=== PATIENT | female | born 1945 | race Caucasian/White ===

== ENCOUNTER 2022-09-13 14:08 | Inpatient (IN) | payer MEDICARE ==
[~2022-09-13] VITALS: Ht 167.6 cm; Wt 91.3 kg
[~2022-09-13 14:08] MED LIST: ACID REDUCER 1150 MG PO; Bupropion HCl100 M1 PO; CEPH500 PO; CHOL10002 PO; CLON.5 PO; Calcium Magnes1 EACH PO; Complete Multi1 EAC1 PO; D3-20002000 UNIT PO; DESI50 PO; FISH1000 PO; FOLI400 PO; GABA300 PO; Ibuprofen Ib200 MG PO; MIRT15 PO; OXYC10TA19 PO; OXYC15ER PO; OXYC1TAB11 PO; OXYCODONE HCL E20 MG PO; Oxycodone HCl20 M1 PO; POTASSIUM GLUC500 MG PO; Prozac40 MG PO; Stool Softener100 MG PO; TRIA80TC TOP
[2022-09-13 14:30] LABS: PCO2 Arterial 85.3 mmHg (35-45); PO2 Arterial 128 mmHg (80-100)
[2022-09-13 14:37] LABS: Source, Urine Foley catheter
[2022-09-13 14:40] LABS: Appearance, Urine Hazy (Clear); Bilirubin, Urine Neg (Neg); Blood, Urine Neg (Neg); Glucose Qualitative, Urine Neg (Neg); Ketones, Urine Neg (Neg); Leukocyte Esterase, Urine Neg (Neg); Nitrite, Urine Pos (Neg); Protein, Urine 2+ (Neg); Specific Gravity, Urine 1.015 (1.003-1.022); Urobilinogen, Urine NORM (Normal)
[2022-09-13 14:46] LABS: Color, Urine Pale Yellow (P-Yellow)
[2022-09-13 14:50] LABS: International Normalized Ratio 1.01; Prothrombin Time Results 10.6 Sec (9.7-11.5)
[2022-09-13 14:51] LABS: Hyaline Casts 0-2 /lpf (0-2)
[2022-09-13 14:52] LABS: Bacteria Many /hpf; Calcium Oxalate Crystals Rare /hpf; Red Blood Cells, Urine 0-2 /hpf (0-2); Squamous Epithelial Cells Not Seen /hpf (Few); Transitional Epithelial Cells Rare /hpf (0-Rare)
[2022-09-13 14:54] LABS: Alanine Aminotransfer (ALT/SGP 23 U/L (12-78); Albumin, Blood 3.1 g/dL (3.4-5.0); Albumin/Globulin Ratio 0.7 (0.8-1.8); Alk Phos 67 U/L (50-136); Anion Gap Unable to Calculate mmol/L (6-16); Aspartate Aminotrans (AST/SGOT 47 U/L (12-37); Bilirubin, Total 0.9 mg/dL (0.1-1.0); Blood Urea Nitrogen 9 mg/dL (8-24); Bun/Creatinine Ratio 19.9 (12.0-20.0); CO2, Blood 43 mmol/L (21-32); Calcium, Blood 8.6 mg/dL (8.5-10.1); Chloride, Blood 102 mmol/L (98-108); Creatinine, Blood 0.45 mg/dL (0.40-1.00); Globulin, Blood 4.5 g/dL (2.2-4.0); Glomerular Filtration Rate 101 (60-); Glucose, Blood 156 mg/dL (70-99); Potassium, Blood 4.5 mmol/L (3.5-5.5); Sodium, Blood 143 mmol/L (136-145); Total Protein, Blood 7.6 g/dL (6.4-8.2)
[2022-09-13 15:00] LABS: U Amphetamine Screen Not Detected; U Barbituate Screen Not Detected; U Benzodiazapine Screen Not Detected; U Buprenorphine Screen Not Detected; U Cannabinoids Screen Not Detected; U Cocaine Screen Not Detected; U Methadone Screen Not Detected; U Methamphetamine Screen Not Detected; U Opiates Screen DETECTED; U Oxycodone Screen Not Detected; U Phencyclidine Screen Not Detected; U Propoxyphene Screen Not Detected
[2022-09-13 15:11] LABS: BASOPHILS ABSOLUTE AUTO 0.03 K/mm3 (0.00-0.23); BASOPHILS PERCENT AUTO 0 % (0-2); EOSINOPHILS ABSOLUTE AUTO 0.12 K/mm3 (0.00-0.68); EOSINOPHILS PERCENT AUTO 1 % (0-6); Hematocrit 46.2 % (33.0-51.0); Hemoglobin 13.3 g/dL (11.5-16.0); IMMATURE GRAN ABSOLUTE AUTO 0.02 K/mm3 (0.00-0.10); IMMATURE GRAN PERCENT AUTO 0 % (0-1); LYMPHOCYTES ABSOLUTE AUTO 1.39 K/mm3 (0.84-5.20); LYMPHOCYTES PERCENT AUTO 13 % (21-46); MONOCYTES ABSOLUTE AUTO 0.48 K/mm3 (0.16-1.47); MONOCYTES PERCENT AUTO 5 % (4-13); Mean Corpuscular HGB 27.3 pg (26.0-34.0); Mean Corpuscular HGB Conc 28.8 g/dL (31.5-36.5); Mean Corpuscular Volume 95 fL (80-100); Mean Platelet Volume 10.1 fL (9.1-12.4); NEUTROPHILS ABSOLUTE AUTO 8.65 K/mm3 (1.96-9.15); NEUTROPHILS PERCENT AUTO 81 % (41-73); Platelet Count 135 K/mm3 (150-400); RDW Coefficient Variation 13.2 % (11.7-14.2); RDW Standard Deviation 46.5 fL (35.1-46.3); Red Blood Cell Count 4.88 M/mm3 (3.80-5.20); White Blood Cell Count 10.69 K/mm3 (4.00-11.30)
[2022-09-13 15:24] LABS: Influenza A, PCR NEGATIVE (NEGATIVE); Influenza B, PCR NEGATIVE (NEGATIVE); Resp Syncytial Virus, PCR NEGATIVE (NEGATIVE); SARS-Cov-2 (COVID-19) PCR, MMC NEGATIVE (NEGATIVE)
--- NOTE | 2022-09-13 19:15 | NUR ---
ASSUMED CARE PATIENT ON BIPAP. OPENS EYES SLIGHTLY TO PAIN. DAUGHTER AT BEDSIDE. HYPOTENSIVE, FLUID BOLUS INFUSING. LEVOPHED AND NARCAN DRIPS INFUSING. YAO CATH IN PLACE TO GRAVITY. CONFIRMED DNR STATUS WITH DAUGHTER AT BEDSIDE.
--- NOTE | 2022-09-13 19:37 | NUR ---
PT ADMIT.... PT ARRIVED ON THE UNIT AT 1735. PT WAS ON BIPAP AT 18/6 AND 65% WITH O2 SATS >90% L/S VERY DIM T/O. PT WAS VERY OBTUNDED ONLY RESPONDING TO PAINFUL STIMULI BY OPENING HER EYES AND MOVING HER HEAD BUT QUICKLY CLOSING THEM WITHOUT CONTINUED STIMULIATION. SHE WAS GIVEN ANOTHER DOSE OF IV NARCAN 0.4MG PER ORDERS THIS IMPROVED HER MENTATION A LITTLE MORE SHE OPENED HER EYES WITHOUT STIMULIATION AND MOVED HER ARMS BUT THIS QUICKLY WORE OFF. DURING THIS TIME HER FAMILY WAS AT THE BEDSIDE, ADMIT INFO WAS OBTAINED FROM NANY LOPEZON/PERSONAL INSURANCE ADVISOR. PT WAS IN SR IN TH 80'S-90'S BP WAS SOFT BUT MAPS WERE >65. AT 1815 THE PT'S BP STARTED TO TREND DOWN TO 60'S/20'S WITH MAPS IN THE 30'S. THE PROVIDER WAS CALLED AND ORDERS OBTAINED FOR A NARCAN DRIP, LR BOLUS AND LEVOPHED GTT. THE PT WAS GIVEN 0.4MG IV PUSH OF NARCAN AND THE BIPAP WAS TAKEN OFF TO SEE IF THE PT'S BP WOULD IMPROVE, HER MAPS IMPROVED SLIGHTLY BUT SHE STARTED TO DESAT DOWN TO THE 70'S SO SHE WAS PLACED BACK ON THE BIPAP. LEVOPHED GTT WAS STARTED PERIPHERALLY. DURING ADMIT THE PT WAS NOTED TO HAVE A RED AREA TO HER COCCYX, THIS AREA WAS BLANCHABLE BUT PICTURES WERE TAKEN AND A MEPILEX WAS PLACED. NANY THE KALYAN SON WAS ASKED TO BRING IN HER HOME MED LIST AND HIS COPY OF POA PAPERS. REPORT WAS GIVEN TO ONCOMING NELSON DAILY
[2022-09-13 19:38] LABS: PO2 Arterial 133 mmHg (80-100)
[2022-09-13 19:40] LABS: PCO2 Arterial 83.4 mmHg (35-45); pH Blood Arterial 7.25 (7.35-7.45)
--- NOTE | 2022-09-13 21:48 | NUR ---
DR. EMANUEL CALLED FOR PATIENT UPDATE. NOTIFIED OF CURRENT NARCAN/LEVOPHED/NS DOSE. PER DR. EMANUEL INCREASE NS FROM 100ML/HR TO 150ML/HR.
--- NOTE | 2022-09-13 23:21 | NUR ---
ASSUMED CARE PATIENT ON BIPAP. OPEN EYES SLIGHTLY TO PAIN. DAUGHTER AT BEDSIDE. PATIENT HYPOTENSIVE. RECEIVING FLUID BOLUS. LEVOPHED AND NARCAN DRIPS INFUSING. YAO IN PLACE. CONFIRMED DNR STATUS WITH DAUGHTER AT BEDSIDE.
[2022-09-14 03:53] LABS: Bicarbonate Venous 30.2 mmol/L (24.0-30.0); PCO2 Venous 54.5 mmHg (38-42); pH Blood Venous 7.39 (7.34-7.37)
[2022-09-14 05:12] LABS: BASOPHILS ABSOLUTE AUTO 0.01 K/mm3 (0.00-0.23); BASOPHILS PERCENT AUTO 0 % (0-2); EOSINOPHILS PERCENT AUTO 0 % (0-6); Hematocrit 43.4 % (33.0-51.0); IMMATURE GRAN ABSOLUTE AUTO 0.05 K/mm3 (0.00-0.10); IMMATURE GRAN PERCENT AUTO 0 % (0-1); LYMPHOCYTES ABSOLUTE AUTO 1.08 K/mm3 (0.84-5.20); LYMPHOCYTES PERCENT AUTO 9 % (21-46); MONOCYTES ABSOLUTE AUTO 0.08 K/mm3 (0.16-1.47); MONOCYTES PERCENT AUTO 1 % (4-13); Mean Corpuscular HGB 27.7 pg (26.0-34.0); Mean Corpuscular Volume 93 fL (80-100); NEUTROPHILS ABSOLUTE AUTO 10.65 K/mm3 (1.96-9.15); NEUTROPHILS PERCENT AUTO 90 % (41-73); RDW Coefficient Variation 13.5 % (11.7-14.2); RDW Standard Deviation 45.2 fL (35.1-46.3); Red Blood Cell Count 4.69 M/mm3 (3.80-5.20); White Blood Cell Count 11.87 K/mm3 (4.00-11.30)
[2022-09-14 05:18] LABS: Mean Platelet Volume 10.9 fL (9.1-12.4); Platelet Count 125 K/mm3 (150-400)
[2022-09-14 05:41] LABS: Bun/Creatinine Ratio 23.8 (12.0-20.0); Calcium, Blood 7.9 mg/dL (8.5-10.1); Creatinine, Blood 0.42 mg/dL (0.40-1.00); Potassium, Blood 3.4 mmol/L (3.5-5.5)
--- NOTE | 2022-09-14 06:18 | NUR ---
NOTIFIED DR. WHITE OF POTASSIUM 3.4 ORDERS RECEIVED.
--- NOTE | 2022-09-14 06:27 | NUR ---
SHIFT SUMMARY PATIENT IS ALERT OPENING EYES SPONTANEOUSLY, ASKING QUESTIONS. LEVOPHED & NARCAN OFF. VS STABLE, HOWEVER PATIENTS O2 SATS WILL RANDOMLY DROP INTO THE 70'S SLOWLY RECOVERING BACK INTO THE 90'S. URINE OUTPUT ADEQUATE.
--- NOTE | 2022-09-14 08:11 | NUR ---
AM NOTE... ASSUMED CARE OF PT AT 0700, PT IS A&Ox4. SHE WAS ON BIPAP AT 12/5 AND 50% WITH O2 SATS >90%, THIS WAS CHANGED TO AIRVO AT 40L AND 50% WITH O2 SATS >90% L/S COARSE T/O DIM IN THE BASES, RR 14-19. SHE IS IN SR IN THE 80'S-90'S MAPS ARE >65. NO EDEMA IS NOTED ON THIS ASSESSMENT. TEMP YAO IN PLACE, PATENT AND DRAINING TO GRAVITY. PT IS AWAKE AND ALERT, ABLE TO TAKE PO MEDS AND THIN LIQUIDS. PROVIDERS AT THE BEDSIDE TO ASSESS THE PT, NEW ORDERS FOR A DIET AND CBG CHECKS WERE OBTAINED. WILL CONTINUE TO MONITOR.
[2022-09-14] MEDS ORDERED: GABA300 PO (11:30)
[2022-09-14] MEDS ORDERED: MEMA5TAB PO (11:30)
[2022-09-14] MEDS ORDERED: METO25ER PO (11:30)
[2022-09-14] MEDS ORDERED: Crestor20 MG PO (11:31)
[2022-09-14] MEDS ORDERED: ASPI81CH PO (11:32)
[2022-09-14] MEDS ORDERED: CO Q10100 MG PO (11:32)
[2022-09-14] MEDS ORDERED: ASCORBIC ACID500 MG PO (11:33)
[2022-09-14] MEDS ORDERED: CALCIUM-MAGNES1 EAC9 PO (11:34)
[2022-09-14] MEDS ORDERED: FISH OIL 1,2001 EAC7 PO (11:35)
--- NOTE | 2022-09-14 13:42 | NUR ---
PT UPDATE.... PT WAS A 1P ASSIST TO THE RECLINER CHAIR AND ATE LUNCH. SHE GOT A BEDBATH AND HER YAO WAS D/C'd WNL. PT'S FIO2 WAS DECREASED FROM 50% TO 40% SHE IS CURRENTLY 40L AND 40% WITH O2 SATS >90%. WILL CONTINUE TO MONITOR.
[2022-09-14] MEDS ORDERED: BREZTRI AEROS10.7 GM INH (14:21)
--- NOTE | 2022-09-14 15:09 | NUR ---
PT TRANSFER... PT TRANSFER TO PCU, REPORT GIVEN TO ALANIS DAMON. ALL OF THE PT'S BELONGINGS WERE PACKED AND SENT WITH THE PT. PT'S VS STABLE AT THE TIME OF TRANSFER. PT WAS TITRATED OFF OF THE AIRVO AT 40L AND 40% TO 4L NC WITH O2 SATS >90%. PT'S FAMILY NOTIFIED OF THE MOVE.
--- NOTE | 2022-09-14 17:03 | NUR ---
PT TRANSFERRED FROM ICU 7 TO PCU 2 REPORT RECEIVED FROM VANDANA DAMON. PT WAS TRANSITIONED FROM AIRVO TO 4L OF O2 VIA NASAL CANNULA PT WAS ABLE TO TOLERATE SATS ABOVE 90%. PT IS ALERT AND ORIENTED X3 FORGETFUL WITH SOME CONFUSION, PER SON PT HAS PRE DEMENTIA. BED ALARM WAS PLACED PT STOOD UP IN THE ROOM WITHOUT CALLING FIXING HER BED, OTHERWISE PT IS REDIRECTABLE AND COOPERATIVE. PT IN THE ROOM WITH CALL LIGHTS IN REACH, SON CALLED WAS GIVEN UPDATE. WILL MONITOR
--- NOTE | 2022-09-15 05:37 | NUR ---
SHIFT SUMMARY PT A&O TO SELF AND PERSON, UNABLE TO STATE WHERE SHE IS. VSS, BP STABLE, SR-ST 80-100's, DENIES CP/PRESSURE. SpO2> 92% ON 40L/40% FiO2 VIA AIRVO. PT DESATURATES TO 80's WITH BED ACTIVITY. REPORTS MILD SOB ONLY WHEN DESATURATING. PT HAD BOTH INCONTINENT AND CONTINENT VOIDS, THOUGHT WAS UNABLE TO UNDERSTAND HOW TO USE BEDPAN, DID NOT GET PT UP D/T DESATURATING WITH JUST BED ACTIVITY. NO BM THIS SHIFT, BOWEL CARE PROVIDED. NO OTHER EVENTS, WILL REPORT TO ONCOMING RN.
[2022-09-15 07:01] LABS: Hematocrit 38.6 % (33.0-51.0); Hemoglobin 11.3 g/dL (11.5-16.0); Mean Corpuscular HGB 27.2 pg (26.0-34.0); Mean Corpuscular HGB Conc 29.3 g/dL (31.5-36.5); Mean Corpuscular Volume 93 fL (80-100); Platelet Count 125 K/mm3 (150-400); RDW Coefficient Variation 13.7 % (11.7-14.2); RDW Standard Deviation 46.5 fL (35.1-46.3); Red Blood Cell Count 4.15 M/mm3 (3.80-5.20); White Blood Cell Count 10.33 K/mm3 (4.00-11.30)
[2022-09-15 07:12] LABS: Bun/Creatinine Ratio 43.4 (12.0-20.0); Calcium, Blood 8.6 mg/dL (8.5-10.1); Creatinine, Blood 0.46 mg/dL (0.40-1.00)
--- NOTE | 2022-09-15 10:44 | NUR ---
Spoke with Pt's Primary RN Chaya prior to visit and discussed case. Pt more alert today but still requiring AIRVO. Pt resting in bed and is A&OX3/4. Pt struggles with verbalizing reason for hospital stay. Pt denies pain, anxiety, and nausea. She reports feeling better and dyspnea has improved. Pt's son Getachew is at bedside. Pt reports living with family with Getachew confirming Pt lives with him. Getachew reports being Pt's primary caregiver. Reviewed plan of care and offered therapeutic listening. Getachew reports Pt has not taken oral pain medication at home in quite some time and just relies on pain pump. He reports Pt has pain pump for approximately 4 years. Getachew also reports Pt has dementia. Continued therapeutic listening and answered questions. Getachew and Pt agreeable for continued visits from this PC RN. Getachew does request to be present when this RN visits due to Pt's dementia. Palliative Care will F/U for advanced care planning.
--- NOTE | 2022-09-15 18:26 | NUR ---
END OF SHIFT PT A&O TO PERSON, PLACE & EVENT. PT DIFFICULTY W/ DATE, BUT EVENTUALLY ORIENTED TO DATE/TIME WELL. PT VSS. SPO2 > 90% ON AIRVO: 40L, FIO2 40%. W/ REQUEST TO TITRATE O2 DOWN ABLE. PT 90-92% AT REST. SPO2 87-90% ON AIRVO: 40L FIO2 35% AT REST. PT REQUIRING MORE O2 FOR ACTIVITY. MONITOR SHOWING SR-ST, HR 80s-110. PT INCONTINENT, WEARING ATTENDS. PT ABLE TO MAKE NEEDS KNOWN.
[2022-09-16 04:21] LABS: BASOPHILS PERCENT AUTO 0 % (0-2); EOSINOPHILS PERCENT AUTO 0 % (0-6); Hematocrit 38.3 % (33.0-51.0); Hemoglobin 11.5 g/dL (11.5-16.0); IMMATURE GRAN ABSOLUTE AUTO 0.06 K/mm3 (0.00-0.10); IMMATURE GRAN PERCENT AUTO 1 % (0-1); LYMPHOCYTES ABSOLUTE AUTO 0.51 K/mm3 (0.84-5.20); LYMPHOCYTES PERCENT AUTO 5 % (21-46); MONOCYTES ABSOLUTE AUTO 0.37 K/mm3 (0.16-1.47); MONOCYTES PERCENT AUTO 4 % (4-13); Mean Corpuscular HGB 27.6 pg (26.0-34.0); Mean Corpuscular Volume 92 fL (80-100); Mean Platelet Volume 9.9 fL (9.1-12.4); NEUTROPHILS ABSOLUTE AUTO 9.26 K/mm3 (1.96-9.15); NEUTROPHILS PERCENT AUTO 91 % (41-73); Platelet Count 143 K/mm3 (150-400); RDW Coefficient Variation 13.8 % (11.7-14.2); RDW Standard Deviation 46.9 fL (35.1-46.3); Red Blood Cell Count 4.17 M/mm3 (3.80-5.20)
[2022-09-16 04:27] LABS: Bun/Creatinine Ratio 56.1 (12.0-20.0); Calcium, Blood 9.2 mg/dL (8.5-10.1); Creatinine, Blood 0.48 mg/dL (0.40-1.00); Potassium, Blood 3.5 mmol/L (3.5-5.5)
--- NOTE | 2022-09-16 04:35 | NUR ---
SHIFT SUMMARY PT A&O TO SELF AND PERSON, UNABLE TO STATE WHERE SHE IS. VSS, BP STABLE, SR-ST 80-100's, DENIES CP/PRESSURE. SpO2> 92% ON 40L/35% FiO2 VIA AIRVO OR 12/5 35% FiO2 VIA BIPAP. PT DESATURATES TO 80's WITH BED ACTIVITY. REPORTS MILD SOB ONLY WHEN DESATURATING. PT HAD BOTH INCONTINENT AND CONTINENT VOIDS, PUREWICK IN PLACE. DID NOT GET PT UP D/T DESATURATING WITH JUST BED ACTIVITY. NO BM THIS SHIFT, BOWEL CARE PROVIDED. NO OTHER EVENTS, WILL REPORT TO ONCOMING RN.
--- NOTE | 2022-09-16 10:21 | NUR ---
Case Conference Note Met with Pt's son Getachew out in [place]. Listened as he reports Pt is doing better. Continued therapeutic listening. Engaged in brief and gentle conversation regarding advanced care planning. Discussed the importance of planning for the future as disease process takes its coarse. Continued therapeutic listening and answered questions. Spoke with Pt's Primary RN Chaya and discussed case. Pt improving, up in a chair and on 4 L O2 via NC. No concerns reported at this time. Palliative Care will remain available
[2022-09-16 11:00] LABS: Base Excess Venous 15.5 mmol/L; Bicarbonate Venous 36.3 mmol/L (24.0-30.0); pH Blood Venous 7.42 (7.34-7.37)
--- NOTE | 2022-09-16 18:41 | NUR ---
END OF SHIFT NOTE. PT HAS HAD A GREAT DAY. PT WAS ABLE TO WEAN DOWN TO HER BASELINE 4L VIA NASAL CANNULA. SHE HAS TOLERATED THAT WELL, EVEN WHILE WORKING WITH PT. PT HAS DENIED AN PAIN TODAY. VITALS STABLE ALL SHIFT. PT REPORTS IT HAS BEEN A COUPLE DAYS SINCE LAST BM, MAY BENEFIT FROM ADDITIONAL BOWEL CARE.
[2022-09-17 04:14] LABS: BASOPHILS ABSOLUTE AUTO 0.02 K/mm3 (0.00-0.23); BASOPHILS PERCENT AUTO 0 % (0-2); EOSINOPHILS PERCENT AUTO 0 % (0-6); Hematocrit 40.7 % (33.0-51.0); Hemoglobin 12.4 g/dL (11.5-16.0); IMMATURE GRAN ABSOLUTE AUTO 0.08 K/mm3 (0.00-0.10); IMMATURE GRAN PERCENT AUTO 1 % (0-1); LYMPHOCYTES ABSOLUTE AUTO 0.79 K/mm3 (0.84-5.20); LYMPHOCYTES PERCENT AUTO 10 % (21-46); MONOCYTES ABSOLUTE AUTO 0.18 K/mm3 (0.16-1.47); MONOCYTES PERCENT AUTO 2 % (4-13); Mean Corpuscular HGB 27.7 pg (26.0-34.0); Mean Corpuscular HGB Conc 30.5 g/dL (31.5-36.5); Mean Corpuscular Volume 91 fL (80-100); Mean Platelet Volume 10.8 fL (9.1-12.4); NEUTROPHILS ABSOLUTE AUTO 7.26 K/mm3 (1.96-9.15); NEUTROPHILS PERCENT AUTO 87 % (41-73); Platelet Count 146 K/mm3 (150-400); RDW Coefficient Variation 13.7 % (11.7-14.2); RDW Standard Deviation 45.8 fL (35.1-46.3); Red Blood Cell Count 4.48 M/mm3 (3.80-5.20); White Blood Cell Count 8.33 K/mm3 (4.00-11.30)
--- NOTE | 2022-09-17 04:29 | NUR ---
SHIFT SUMMARY: PT ALERT AND ORIENTED, ABLE TO FOLLOW COMMANDS AND MAKE NEEDS KNOWN. ELIM IRA. BP AND HR STABLE, AFEBRILE, SATS >94% ON 4L NC. RESPIRATIONS EVEN AND UNLABORED. PULSES STRONG THROUGHOUT. PT INC OF URINE AT TIMES, NO BM THROUGHOUT THE NIGHT. ATTENDS CHANGED. REPOS Q2 TO MAINTAIN SKIN INTEGRITY. PT WITH NO COMPLAINTS OF PAIN THROUGHOUT THE NIGHT. POWERGLIDE REMAINS IN MICHELLE, DRAWS AND FLUSHES. POSSIBLE D/C TODAY. BED IN LOW, CALL LIGHT IN REACH, WILL REPORT TO ONCOMING RN.
[2022-09-17 04:43] LABS: Anion Gap Unable to Calculate mmol/L (6-16); Blood Urea Nitrogen 22 mg/dL (8-24); Bun/Creatinine Ratio 53.9 (12.0-20.0); CO2, Blood 41 mmol/L (21-32); Calcium, Blood 9.1 mg/dL (8.5-10.1); Chloride, Blood 100 mmol/L (98-108); Creatinine, Blood 0.41 mg/dL (0.40-1.00); Glomerular Filtration Rate 103 (60-); Glucose, Blood 177 mg/dL (70-99); Potassium, Blood 4.3 mmol/L (3.5-5.5); Sodium, Blood 138 mmol/L (136-145)
[2022-09-17] MEDS ORDERED: Celexa20 MG PO (11:09)
[2022-09-17] MEDS ORDERED: IPRAT-ALBUT 0.5-3 ML INH (11:42)
[2022-09-17] MEDS ORDERED: ALBU90OI INH (11:42)
[2022-09-17] MEDS ORDERED: MULVITA PO (12:00)
--- NOTE | 2022-09-17 12:24 | NUR ---
DISCHARGE NOTE PT TO DISCHARGE HOME WITH SON. EDUCATION WAS PROVIDED TO PT AND SON. SIGNIFICANT EMPHASIS WAS PLACED ON LIMITING PAIN OR SEDATIVE MEDICATIONS. STAFF ALSO ENCOURAGED APPTS WITH PCP AND PAIN MD SOON. SON REPORTED THAT ALL ACCESS TO MEDICATIONS ARE LOCKED AWAY FROM PT AND HE IS TO MANAGE HER MEDICATIONS. PT IS BACK TO BASELINE 4L NC. STAFF ENCOURAGED THE USE OF WALKER AT HOME WELL TAKING REST BREAKS UNTIL HER ENDURANCE IS BACK. IVS REMOVED, ALL BELONGINGS TAKEN WITH PT. ALL QUESTIONS ANSWERED.
== END 2022-09-17 12:43 | disposition home or self-care (01) | DRG 917 ==
LOC: ER 14:08 → ICUW 16:04 → ICUE 17:25 → PCU 09-14 15:00
PROVIDERS: Emergency Medicine; Family Medicine; Nurse Practitioner Acute Care; ADMIT Hospitalist
PROC: 5A09357 Assistance with Respiratory Ventilation, Less than 24 Consecutive Hours, Continuous Positive Airway Pressure (ICD-10-PCS; principal; 2022-09-13)
PROC: 3E033XZ Introduction of Vasopressor into Peripheral Vein, Percutaneous Approach (ICD-10-PCS; 2022-09-13)
PROC: 5A0935A Assistance with Respiratory Ventilation, Less than 24 Consecutive Hours, High Flow/Velocity Cannula (ICD-10-PCS; 2022-09-13)
DX: T40.2X1A Poisoning by other opioids, accidental (unintentional), initial encounter (principal); G92.8 Other toxic encephalopathy; J18.9 Pneumonia, unspecified organism; J96.22 Acute and chronic respiratory failure with hypercapnia; J44.1 Chronic obstructive pulmonary disease with (acute) exacerbation; J44.0 Chronic obstructive pulmonary disease with (acute) lower respiratory infection; E66.2 Morbid (severe) obesity with alveolar hypoventilation; E87.20 Acidosis, unspecified; N39.0 Urinary tract infection, site not specified; F03.911 Unspecified dementia, unspecified severity, with agitation; G89.4 Chronic pain syndrome; M79.7 Fibromyalgia; E11.9 Type 2 diabetes mellitus without complications; Z87.891 Personal history of nicotine dependence; Z66 Do not resuscitate; Z99.81 Dependence on supplemental oxygen; B96.20 Unspecified Escherichia coli [E. coli] as the cause of diseases classified elsewhere; Z79.891 Long term (current) use of opiate analgesic
CPT/HCPCS: 0241U; 36415; 36600; 51702; 70450; 71045; 80048; 80053; 81001; 82803; 82947; 83605; 83735; 84145; 84484; 85025; 85027; 85610; 85730; 87040; 87077; 87086; 87186; 93005; 93010; 93306; 94640; 94660; 94664; 94762; 96365-59; 96366-59; 96368; 96375-59; 96376-59; 97110; 97116; 97162; 99285-25; A9270; C1751; G0480; J0456; J0696; J1650; J1940; J2060; J2310; J2405; J2930; J3370; J3480; J7030; J7050; J7060; J7120

== ENCOUNTER 2023-02-28 18:25 | Inpatient (IN) | payer MEDICARE ==
[2023-02-28] VITALS (19 sets, daily range): BP systolic 108–142; BP diastolic 37–90
[~2023-02-28] VITALS: Ht 160 cm; Wt 93.4 kg
[~2023-02-28 18:25] MED LIST changes: +ALBU90OI INH; +ASCORBIC ACID500 MG PO; +ASPI81CH PO; +BREZTRI AEROS10.7 GM INH; +CALCIUM-MAGNES1 EAC9 PO; +CO Q10100 MG PO; +Celexa20 MG PO; +Crestor20 MG PO; +FISH OIL 1,2001 EAC7 PO; +IPRAT-ALBUT 0.5-3 ML INH; +MEMA5TAB PO; +METO25ER PO; +MULVITA PO; +PRED20 PO
--- NOTE | 2023-02-28 19:20 | NUR ---
ASSUMED CARE CARE WAS ASSUMED OF PT AT 1920. PT TRANSPORTED FROM [facility]. PT A/O X2-3, PT SEMI-DROWSY AND HARD TO COMPLETELY UNDERSTAND D/T BIPAP AND DENTURES NOT IN. PT ARRIVED ON BIPAP, 05/04/40%. PT TOLERATING BIPAP WELL, O2 SATS >90%. CARDIAC MONITORING REFLECTED SINUS TACH, HR SBP 100s. SBP 120s.
[2023-02-28 22:11] LABS: PO2 Arterial 92.4 mmHg (80-100)
[2023-02-28 22:12] LABS: PCO2 Arterial 95.1 mmHg (35-45); pH Blood Arterial 7.24 (7.35-7.45)
[2023-03-01] VITALS (46 sets, daily range): BP systolic 95–144; BP diastolic 59–81
[2023-03-01 02:19] LABS: PO2 Arterial 115 mmHg (80-100)
[2023-03-01 02:20] LABS: PCO2 Arterial 93.5 mmHg (35-45); pH Blood Arterial 7.25 (7.35-7.45)
[2023-03-01 06:42] LABS: Bun/Creatinine Ratio 39.8 (12.0-20.0); Calcium, Blood 8.4 mg/dL (8.5-10.1); Creatinine, Blood 0.53 mg/dL (0.40-1.00); Potassium, Blood 4.6 mmol/L (3.5-5.5)
[2023-03-01 06:55] LABS: Bicarbonate Venous 35.8 mmol/L (24.0-30.0); pH Blood Venous 7.36 (7.34-7.37)
[2023-03-01 06:59] LABS: BASOPHILS ABSOLUTE AUTO 0.01 K/mm3 (0.00-0.23); BASOPHILS PERCENT AUTO 0 % (0-2); EOSINOPHILS PERCENT AUTO 0 % (0-6); Hematocrit 42.2 % (33.0-51.0); Hemoglobin 12.5 g/dL (11.5-16.0); IMMATURE GRAN ABSOLUTE AUTO 0.03 K/mm3 (0.00-0.10); IMMATURE GRAN PERCENT AUTO 0 % (0-1); LYMPHOCYTES ABSOLUTE AUTO 1.08 K/mm3 (0.84-5.20); LYMPHOCYTES PERCENT AUTO 11 % (21-46); MONOCYTES ABSOLUTE AUTO 0.21 K/mm3 (0.16-1.47); MONOCYTES PERCENT AUTO 2 % (4-13); Mean Corpuscular HGB 27.4 pg (26.0-34.0); Mean Corpuscular HGB Conc 29.6 g/dL (31.5-36.5); Mean Corpuscular Volume 92 fL (80-100); Mean Platelet Volume 10.1 fL (9.1-12.4); NEUTROPHILS ABSOLUTE AUTO 8.82 K/mm3 (1.96-9.15); NEUTROPHILS PERCENT AUTO 87 % (41-73); Platelet Count 125 K/mm3 (150-400); RDW Coefficient Variation 13.2 % (11.7-14.2); RDW Standard Deviation 44.6 fL (35.1-46.3); Red Blood Cell Count 4.57 M/mm3 (3.80-5.20); White Blood Cell Count 10.15 K/mm3 (4.00-11.30)
--- NOTE | 2023-03-01 07:00 | NUR ---
ASSUME CARE: I have assumed care of this patient.
--- NOTE | 2023-03-01 07:38 | NUR ---
SHIFT SUMMARY SHARDA'S MENTATION HAS GOTTEN BETTER THROUGHOUT THE SHIFT. PT IS STILL A/0 X2-3 BUT IS BEGINNING TO ASK APPROPRIATE QUESTIONS AND INQUIRING ABOUT HER CARE. PT HAS REMAINED ON BIPAP ALL NIGHT, TOLERATED WELL. SETTINGS AT SHIFT CHANGE 20/12/45%. O2 SATS >90%. CARDIAC MONITORING REFLECTED SINUS TACH THIS SHIFT, SBP 120s-130s. ABGs DRAWN THROUGHOUT THE SHIFT, pH AND CO2 IMPROVING. BILATERAL PIVs SL.
--- NOTE | 2023-03-01 11:33 | NUR ---
PROVIDER: Dr Grayson at bedside. Request RN to leave pt on NC until VBG this afternoon.
[2023-03-01 14:13] LABS: PCO2 Venous 67.3 mmHg (38-42); pH Blood Venous 7.39 (7.34-7.37)
[2023-03-01 14:14] LABS: Base Excess Venous 15.4 mmol/L; Bicarbonate Venous 36.5 mmol/L (24.0-30.0)
--- NOTE | 2023-03-01 18:42 | NUR ---
SHIFT SUMMARY: Pt tolerated 6L NC for much of the day. She is A/O x 4 at this time. Bedside swallow successfully completed and ADA diet initiated. Purewick in place. Family updated on pt status at bedside.
--- NOTE | 2023-03-01 18:45 | NUR ---
SHIFT SUMMARY: Precedex titrated off for a few hours, however pt began complaining of feeling agitated and wanting to "yell at everyone". It was restarted at 0.2 mcg/kg/hr with good effect. She was given PO librium today for CIWAs. Pt transferres from bed to commode with assistance. She was up in chair today as well. Family updated at bedside.
--- NOTE | 2023-03-01 19:08 | NUR ---
IGNITION RISK: Sources of ignition rounded on hourly. Pt and family educated on risks.
[2023-03-02] VITALS (11 sets, daily range): BP systolic 129–159; BP diastolic 59–77
[2023-03-02 04:50] LABS: Anion Gap Unable to Calculate mmol/L (6-16); Blood Urea Nitrogen 23 mg/dL (8-24); Bun/Creatinine Ratio 46.7 (12.0-20.0); CO2, Blood 41 mmol/L (21-32); Calcium, Blood 8.9 mg/dL (8.5-10.1); Chloride, Blood 101 mmol/L (98-108); Creatinine, Blood 0.49 mg/dL (0.40-1.00); Glomerular Filtration Rate 98 (60-); Glucose, Blood 224 mg/dL (70-99); Magnesium, Blood 2.1 mg/dL (1.6-2.4); Potassium, Blood 4.5 mmol/L (3.5-5.5); Sodium, Blood 140 mmol/L (136-145)
--- NOTE | 2023-03-02 05:30 | NUR ---
SHIFT SUMMARY: Pt slept for most of the night with BIPAP on. On 6L NC this morning. Eating yogurt. Vitals stable. Denies pain/ discomfort. Turned every 2 hours, purewick in place, changed this morning at 0400.
[2023-03-02 06:36] LABS: BASOPHILS ABSOLUTE AUTO 0.03 K/mm3 (0.00-0.23); BASOPHILS PERCENT AUTO 0 % (0-2); EOSINOPHILS PERCENT AUTO 0 % (0-6); Hematocrit 40.8 % (33.0-51.0); Hemoglobin 12.4 g/dL (11.5-16.0); IMMATURE GRAN PERCENT AUTO 1 % (0-1); LYMPHOCYTES ABSOLUTE AUTO 1.03 K/mm3 (0.84-5.20); LYMPHOCYTES PERCENT AUTO 11 % (21-46); MONOCYTES ABSOLUTE AUTO 0.23 K/mm3 (0.16-1.47); MONOCYTES PERCENT AUTO 3 % (4-13); Mean Corpuscular HGB 26.7 pg (26.0-34.0); Mean Corpuscular HGB Conc 30.4 g/dL (31.5-36.5); Mean Corpuscular Volume 88 fL (80-100); Mean Platelet Volume 11.1 fL (9.1-12.4); NEUTROPHILS ABSOLUTE AUTO 7.77 K/mm3 (1.96-9.15); NEUTROPHILS PERCENT AUTO 85 % (41-73); NRBC ABSOLUTE 0.02 K/mm3 (0.00-0.02); NRBC Auto 0.2 /100 WBC (0.0-0.2); Platelet Count 103 K/mm3 (150-400); RDW Coefficient Variation 13.2 % (11.7-14.2); RDW Standard Deviation 42.6 fL (35.1-46.3); Red Blood Cell Count 4.64 M/mm3 (3.80-5.20); White Blood Cell Count 9.16 K/mm3 (4.00-11.30)
--- NOTE | 2023-03-02 11:52 | NUR ---
REASSESSMENT PT HAS BEEN ON 6L/NC AND OFF OF THE BIPAP ALL MORNING. SHE IS ALERT AND ORIENTED TO PERSON AND PLACE. HER LUNGS ARE CLEAR, DIM IN THE BASES. SR, BP STABLE. SHE IS SITTING UP IN A CHAIR FOR LUNCH. SHE TRANSFERRED WITH MINIMAL ASSIST. DR. NUNEZ CAME BY AND OK'D PT TO BE MED, NO TELE, STATUS. PT'S SON CALLED THIS MORNING AND WAS UPDATED. CONTINUING TO MONITOR.
--- NOTE | 2023-03-02 14:11 | NUR ---
TRANSFER PT TRANSFERRED TO 360 VIA . REPORT FANY JJ RN. PT'S SON KELLY NOTIFIED OF NEW ROOM. ALL BELONGINGS TRANSFERRED WITH PT. PT TOLERATED TRANSFER WELL.
--- NOTE | 2023-03-02 14:44 | NUR ---
"Spiritual Care | Pt. request Pt. is awake in bed. A freind is present. Pt. displays evidence of anxiety and mistrust. Facilitate a life review and, with the friend's help, establish a measure of trust. Pt, begins to display evidence of gaurded trust. Pt. verbalized anxiety was based on the potential discharge to a SNF. Sought to normalize the Pt. experience. Prayed with the Pt. Pt. invited this baked and graphite inspector to return."
--- NOTE | 2023-03-02 17:47 | NUR ---
SHIFT SUMMARY ASSUMED CARE OF PT AFTER TRANSFER FROM ICU. PT A&O TO SELF AND PLACE. PT KALTAG BUT ABLE TO FOLLOW DIRECTIONS. PT ON 6L OF O2 VIA N/C, BASELINE AT HOME 4L. NO ACUTE EVENTS OCCURED DURING SHIFT, PT VS STABLE, PT LEFT IN A POSITION OF SAFETY WITH BED IN LOWEST POSITION AND LOCKED, BED ALARM ENABLED, AND CALL LIGHT WITHIN REACH.
--- NOTE | 2023-03-02 18:32 | NUR ---
THIS TANNING DRUM OPERATOR HAS REVIEWED NOTES AND EMAR DONE BY NELSON CARY AND AGREES WITH IT.
--- NOTE | 2023-03-03 02:41 | NUR ---
SHIFT SUMMARY PT A/O VERY DROWSY BUT WAKES WHEN ENGAGED, NO C/O PAIN NO DISTRESS, O2 FLUCTUATES POSSIBLY BECAUSE PT MOUTH BREATHS. ENC PT TO CLOSE MOUTH TO BREATH AND O2 WENT UP TO MID 90'S, WILL CONT TO MONITOR.
[2023-03-03 05:22] VITALS: BP 149/72
[2023-03-03 05:49] LABS: Base Excess Venous 17.8 mmol/L; Bicarbonate Venous 38.2 mmol/L (24.0-30.0); PCO2 Venous 72.5 mmHg (38-42); pH Blood Venous 7.38 (7.34-7.37)
[2023-03-03 07:08] VITALS: BP 133/72
[2023-03-03 14:43] VITALS: BP 132/63
[2023-03-03] MEDS ORDERED: Cefpodoxime Pr200 MG PO (16:47)
[2023-03-03] MEDS ORDERED: PRED20 (16:54)
--- NOTE | 2023-03-03 17:21 | NUR ---
PT DISCHARGED HOME WITH HOME HEALTH AND [facility] PROVIDING HOME OXYGEN, NEBULIZER, AND CPAP. PT'S SON, KELLY, STATES THAT HE WENT TO [facility] AND OBTAINED NEEDED ITEMS FOR PT'S CPAP. [facility] DELIVERED PORTABLE OXYGEN TO PT'S ROOM AND IS MEETING PT AT HOME TO DELIVER NEW HOME UNIT. PT'S SON PROVIDING TRANSPORTATION HOME VIA PERSONAL VEHICLE. PERSONAL BELONGINGS SENT HOME WITH PT. PT TAKEN TO PERSONAL VEHICLE VIA WHEELCHAIR BY JULIA.
== END 2023-03-03 17:30 | disposition home health service (06) | DRG 193 ==
LOC: ICUE 18:25 → MEDS 03-02 14:06 → ENPENDDIS 03-03 13:01 → MEDS 03-03 17:30
PROVIDERS: Internal Medicine; ADMIT Hospitalist
PROC: 5A09357 Assistance with Respiratory Ventilation, Less than 24 Consecutive Hours, Continuous Positive Airway Pressure (ICD-10-PCS; principal; 2023-02-28)
PROC: 4A133R1 Monitoring of Arterial Saturation, Peripheral, Percutaneous Approach (ICD-10-PCS; 2023-02-28)
DX: J18.9 Pneumonia, unspecified organism (principal); J96.21 Acute and chronic respiratory failure with hypoxia; J96.22 Acute and chronic respiratory failure with hypercapnia; J44.1 Chronic obstructive pulmonary disease with (acute) exacerbation; J44.0 Chronic obstructive pulmonary disease with (acute) lower respiratory infection; M19.90 Unspecified osteoarthritis, unspecified site; F41.9 Anxiety disorder, unspecified; Z66 Do not resuscitate; M54.50 Low back pain, unspecified; F32.A Depression, unspecified; G89.4 Chronic pain syndrome; E11.9 Type 2 diabetes mellitus without complications; M79.7 Fibromyalgia; K21.9 Gastro-esophageal reflux disease without esophagitis; N80.9 Endometriosis, unspecified; E66.9 Obesity, unspecified; I10 Essential (primary) hypertension; E78.5 Hyperlipidemia, unspecified; M51.36 Other intervertebral disc degeneration, lumbar region; G47.33 Obstructive sleep apnea (adult) (pediatric); F03.90 Unspecified dementia, unspecified severity, without behavioral disturbance, psychotic disturbance, mood disturbance, and anxiety; Z96.611 Presence of right artificial shoulder joint; Z90.49 Acquired absence of other specified parts of digestive tract; Z98.890 Other specified postprocedural states; Z90.710 Acquired absence of both cervix and uterus; Z90.89 Acquired absence of other organs; Z87.891 Personal history of nicotine dependence; Z99.81 Dependence on supplemental oxygen; Z88.5 Allergy status to narcotic agent; Z88.6 Allergy status to analgesic agent; Z91.041 Radiographic dye allergy status; Z79.82 Long term (current) use of aspirin; Z79.899 Other long term (current) drug therapy; Z99.89 Dependence on other enabling machines and devices; Z87.09 Personal history of other diseases of the respiratory system; Z98.84 Bariatric surgery status; Z68.37 Body mass index [BMI] 37.0-37.9, adult
CPT/HCPCS: 36415; 36600; 80048; 82607; 82746; 82803; 82947; 83735; 84145; 85025; 94660; 94760; 94761; 94762; A9270; J0456; J0696; J1650; J2930; J7050

== ENCOUNTER 2023-07-05 19:37 | Emergency (ER) | payer MEDICARE ==
[~2023-07-05] VITALS: Ht 162.6 cm; Wt 136.1 kg
[~2023-07-05 19:37] MED LIST changes: +Cefpodoxime Pr200 MG PO; +PRED20
[2023-07-05 20:06] LABS: BASOPHILS ABSOLUTE AUTO 0.02 K/mm3 (0.00-0.23); BASOPHILS PERCENT AUTO 0 % (0-2); EOSINOPHILS ABSOLUTE AUTO 0.04 K/mm3 (0.00-0.68); EOSINOPHILS PERCENT AUTO 0 % (0-6); Hematocrit 42.7 % (33.0-51.0); Hemoglobin 12.9 g/dL (11.5-16.0); IMMATURE GRAN ABSOLUTE AUTO 0.05 K/mm3 (0.00-0.10); IMMATURE GRAN PERCENT AUTO 1 % (0-1); LYMPHOCYTES ABSOLUTE AUTO 2.09 K/mm3 (0.84-5.20); LYMPHOCYTES PERCENT AUTO 22 % (21-46); MONOCYTES ABSOLUTE AUTO 0.75 K/mm3 (0.16-1.47); MONOCYTES PERCENT AUTO 8 % (4-13); Mean Corpuscular HGB 28.2 pg (26.0-34.0); Mean Corpuscular HGB Conc 30.2 g/dL (31.5-36.5); Mean Corpuscular Volume 93 fL (80-100); Mean Platelet Volume 9.3 fL (9.1-12.4); NEUTROPHILS ABSOLUTE AUTO 6.68 K/mm3 (1.96-9.15); NEUTROPHILS PERCENT AUTO 69 % (41-73); Platelet Count 163 K/mm3 (150-400); RDW Coefficient Variation 12.8 % (11.7-14.2); RDW Standard Deviation 43.7 fL (35.1-46.3); Red Blood Cell Count 4.58 M/mm3 (3.80-5.20); White Blood Cell Count 9.63 K/mm3 (4.00-11.30)
[2023-07-05 20:31] LABS: Bun/Creatinine Ratio 39.7 (12.0-20.0); Calcium, Blood 8.4 mg/dL (8.5-10.1); Creatinine, Blood 0.45 mg/dL (0.40-1.00); Potassium, Blood 4.4 mmol/L (3.5-5.5); Thyroid Stimulating Hormone 2.64 uIU/mL (0.360-4.800)
[2023-07-05 21:00] VITALS: BP 142/70
== END 2023-07-05 21:15 | disposition home or self-care (01) ==
LOC: ER 19:37
PROVIDERS: Emergency Medicine
DX: R20.2 Paresthesia of skin (principal); J44.9 Chronic obstructive pulmonary disease, unspecified; I50.9 Heart failure, unspecified; E11.9 Type 2 diabetes mellitus without complications; Z88.5 Allergy status to narcotic agent; Z88.8 Allergy status to other drugs, medicaments and biological substances; Z91.041 Radiographic dye allergy status; Z79.899 Other long term (current) drug therapy
CPT/HCPCS: 80048; 84443; 85025; 99284

== ENCOUNTER 2023-10-11 19:32 | Emergency (ER) | payer MEDICARE ==
[~2023-10-11] VITALS: Ht 165.1 cm; Wt 158.8 kg
[~2023-10-11 19:32] MED LIST changes: +ACET325; +ALLERGY RELIEF5 M1 PO; +AZIT250 PO; +CEFP200 PO; +CYMBALTA20 M2 PO; -Crestor20 MG PO; +IBUP400 PO; +LIDOCAINE1 EACH TOP; +MELO7.5 PO; +MEMANTINE HCL511 PO; +OXAYDO5 M1 PO; +OXYC5; +ROSU10TA PO; +TRELEGY ELLIPT1 EACH INH; +UBID10 PO; +VISBIOME 112.51 EACH PO
[2023-10-11 19:35] VITALS: BP 148/72
[2023-10-11 19:56] LABS: Base Excess Venous 16.1 mmol/L; Bicarbonate Venous 37.4 mmol/L (24.0-30.0); PCO2 Venous 62.6 mmHg (38-42); pH Blood Venous 7.42 (7.34-7.37)
[2023-10-11 20:07] LABS: BASOPHILS ABSOLUTE AUTO 0.02 K/mm3 (0.00-0.23); BASOPHILS PERCENT AUTO 0 % (0-2); EOSINOPHILS PERCENT AUTO 1 % (0-6); Hematocrit 38.2 % (33.0-51.0); Hemoglobin 11.5 g/dL (11.5-16.0); IMMATURE GRAN ABSOLUTE AUTO 0.01 K/mm3 (0.00-0.10); IMMATURE GRAN PERCENT AUTO 0 % (0-1); LYMPHOCYTES PERCENT AUTO 42 % (21-46); MONOCYTES ABSOLUTE AUTO 0.49 K/mm3 (0.16-1.47); MONOCYTES PERCENT AUTO 7 % (4-13); Mean Corpuscular HGB 28.3 pg (26.0-34.0); Mean Corpuscular HGB Conc 30.1 g/dL (31.5-36.5); Mean Corpuscular Volume 94 fL (80-100); Mean Platelet Volume 9.6 fL (9.1-12.4); NEUTROPHILS ABSOLUTE AUTO 3.43 K/mm3 (1.96-9.15); NEUTROPHILS PERCENT AUTO 49 % (41-73); Platelet Count 207 K/mm3 (150-400); RDW Coefficient Variation 13.2 % (11.7-14.2); Red Blood Cell Count 4.06 M/mm3 (3.80-5.20); White Blood Cell Count 6.95 K/mm3 (4.00-11.30)
[2023-10-11 20:30] LABS: Albumin/Globulin Ratio 0.8 (0.8-1.8); Bilirubin, Total 0.5 mg/dL (0.1-1.0); Bun/Creatinine Ratio 36.4 (12.0-20.0); Calcium, Blood 9.4 mg/dL (8.5-10.1); Creatinine, Blood 0.44 mg/dL (0.40-1.00); Potassium, Blood 4.1 mmol/L (3.5-5.5)
[2023-10-12] MEDS ORDERED: Acetaminophen650 M1 PO (03:12)
[2023-10-12] MEDS ORDERED: LACTOBACILLUS1 EAC4 PO (03:14)
== END 2023-10-11 21:33 | disposition home or self-care (01) ==
LOC: ER 19:32
PROVIDERS: Student in an Organized Health Care Education/Training Program
DX: J44.1 Chronic obstructive pulmonary disease with (acute) exacerbation (principal); Z99.81 Dependence on supplemental oxygen; Z79.899 Other long term (current) drug therapy; Z79.51 Long term (current) use of inhaled steroids
CPT/HCPCS: 71046; 80053; 82803; 85025; 93005; 93010; 94660; 99285-25

== ENCOUNTER 2023-10-12 | Inpatient (IN) | payer MEDICARE ==
[~2023-10-12] VITALS: Ht 160 cm; Wt 89.2 kg
[2023-10-12] VITALS (7 sets, daily range): BP systolic 131–151; BP diastolic 63–76
[2023-10-12 00:33] LABS: pH Blood Venous 7.42 (7.34-7.37)
[2023-10-12 00:34] LABS: Base Excess Venous 13.3 mmol/L
[2023-10-12] MEDS ORDERED: Ipratropium/Albuterol SulF 2.5-0.5MG/3 ML Amp INH PRN (01:10)
[2023-10-12] MEDS ORDERED: Ondansetron HCl 2 MG / ML 2ML Vial IV PRN (01:10)
[2023-10-12] MEDS ORDERED: MethylPREDNISolone Sod Succ 125 MG Vial IV SCH ×2 (01:11→21:00)
[2023-10-12 01:49] LABS: International Normalized Ratio 1.01; Prothrombin Time Results 10.8 Sec (9.7-11.5)
[2023-10-12 01:54] LABS: Albumin/Globulin Ratio 0.7 (0.8-1.8); Bilirubin, Total 0.5 mg/dL (0.1-1.0); Bun/Creatinine Ratio 36.6 (12.0-20.0); Calcium, Blood 9.3 mg/dL (8.5-10.1); Creatinine, Blood 0.41 mg/dL (0.40-1.00); Globulin, Blood 4.2 g/dL (2.2-4.0); Potassium, Blood 3.9 mmol/L (3.5-5.5); Total Protein, Blood 7.2 g/dL (6.4-8.2)
[2023-10-12 02:34] LABS: Influenza A, PCR NEGATIVE (NEGATIVE); Influenza B, PCR NEGATIVE (NEGATIVE); Resp Syncytial Virus, PCR NEGATIVE (NEGATIVE); SARS-Cov-2 (COVID-19) PCR, MMC NEGATIVE (NEGATIVE)
[2023-10-12] MEDS ORDERED: Azithromycin 500 MG in NS 250 ML IV SCH (03:00)
[2023-10-12] MEDS ORDERED: Acetaminophen650 M1 PO (03:12)
[2023-10-12] MEDS ORDERED: LACTOBACILLUS1 EAC4 PO (03:14)
[2023-10-12 05:56] LABS: BASOPHILS ABSOLUTE AUTO 0.01 K/mm3 (0.00-0.23); BASOPHILS PERCENT AUTO 0 % (0-2); EOSINOPHILS PERCENT AUTO 0 % (0-6); Hematocrit 39.6 % (33.0-51.0); Hemoglobin 11.9 g/dL (11.5-16.0); IMMATURE GRAN ABSOLUTE AUTO 0.01 K/mm3 (0.00-0.10); IMMATURE GRAN PERCENT AUTO 0 % (0-1); LYMPHOCYTES ABSOLUTE AUTO 0.62 K/mm3 (0.84-5.20); LYMPHOCYTES PERCENT AUTO 18 % (21-46); MONOCYTES ABSOLUTE AUTO 0.03 K/mm3 (0.16-1.47); MONOCYTES PERCENT AUTO 1 % (4-13); Mean Corpuscular HGB 28.3 pg (26.0-34.0); Mean Corpuscular HGB Conc 30.1 g/dL (31.5-36.5); Mean Corpuscular Volume 94 fL (80-100); Mean Platelet Volume 9.9 fL (9.1-12.4); NEUTROPHILS ABSOLUTE AUTO 2.88 K/mm3 (1.96-9.15); NEUTROPHILS PERCENT AUTO 81 % (41-73); Platelet Count 193 K/mm3 (150-400); RDW Coefficient Variation 13.2 % (11.7-14.2); RDW Standard Deviation 44.8 fL (35.1-46.3); Red Blood Cell Count 4.21 M/mm3 (3.80-5.20); White Blood Cell Count 3.55 K/mm3 (4.00-11.30)
--- NOTE | 2023-10-12 06:02 | NUR ---
SHIFT SUMMARY PT A&OX4, VSS, ON 4L02, 1 ASSIST TO THE BSC, NPO, AND DENIED PAIN. IV ABX GIVEN AND SPUTUM CULTURE SENT TO LAB THIS SHIFT. CALL LIGHT WITHIN REACH AND PT ABLE TO MAKE NEEDS KNOWN.
[2023-10-12] MEDS ORDERED: Insulin Human Lispro 100 Units/ML 3ML Syringe SC SCH (07:30)
[2023-10-12] MEDS ORDERED: Enoxaparin 40 MG/0.4 ML SYR SC SCH (09:00)
[2023-10-12] MEDS ORDERED: Benzonatate 100 MG Cap PO PRN (13:00)
[2023-10-12] MEDS ORDERED: Acetaminophen 325 MG TABLET PO PRN (13:05)
--- NOTE | 2023-10-12 13:35 | NUR ---
Reviewed Palliative Care consult, noted that pt's code status is Full Code, but in her chart, she has a POLST filled out and signed 01/26/2024 that is DNR. In reviewing her POLST with the patient, she agrees she wants to remain DNR code status. Received t/o to change code status to DNR to align with pt's wishes.
[2023-10-12] MEDS ORDERED: Albuterol HFA200 ACT/6.7 GM INH INH PRN (13:40)
[2023-10-12] MEDS ORDERED: Mometasone/Formoterol MDI 100/5 mcg 13 GM INH SCH (13:50)
[2023-10-12] MEDS ORDERED: Ipratropium Bromide INH 0.02% 0.5 mg/2.5ML Vial INH SCH (13:55)
[2023-10-12] MEDS ORDERED: GuaiFENesin 600 MG TabCR PO SCH (15:00)
--- NOTE | 2023-10-12 18:32 | NUR ---
SHIFT SUMMARY PT UP TO RECLINER BY P.T. THIS AFTERNOON. CONTINUOUS PULSE OX ON AND DOES DROP WITH ANY ACTIVITY INCLUDING EATING AND REQUIRES INCREASE TO 6L/M. MUCINEX ORDERED AND PT REPORTS THE COUGH AND THICK SPUTUM HAS IMPROVED. SON IN TO VISIT THIS AFTERNOON. NO INCREASED RESP DISTRESS NOTED THROUGH THE DAY.
[2023-10-12] MEDS ORDERED: Lactobacil 2-S.Thermo-Bifido 1 1 Cap PO SCH (21:00)
[2023-10-12] MEDS ORDERED: Memantine HCL 5 MG Tab PO SCH (21:00)
[2023-10-12] MEDS ORDERED: Rosuvastatin Calcium 10 MG Tab PO SCH (21:00)
[2023-10-12] MEDS ORDERED: Cefpodoxime Proxetil 200 MG Tab PO SCH (21:00)
[2023-10-12] MEDS ORDERED: Ipratropium/Albuterol SulF 2.5-0.5MG/3 ML Amp INH SCH (22:45)
[2023-10-12 23:21] LABS: Base Excess Venous 16.4 mmol/L; Bicarbonate Venous 37.7 mmol/L (24.0-30.0); PCO2 Venous 65.5 mmHg (38-42); pH Blood Venous 7.41 (7.34-7.37)
[2023-10-13 03:02] VITALS: BP 159/75
[2023-10-13 03:58] LABS: BASOPHILS ABSOLUTE AUTO 0.01 K/mm3 (0.00-0.23); BASOPHILS PERCENT AUTO 0 % (0-2); EOSINOPHILS PERCENT AUTO 0 % (0-6); Hematocrit 35.9 % (33.0-51.0); Hemoglobin 10.9 g/dL (11.5-16.0); IMMATURE GRAN ABSOLUTE AUTO 0.05 K/mm3 (0.00-0.10); IMMATURE GRAN PERCENT AUTO 1 % (0-1); LYMPHOCYTES ABSOLUTE AUTO 0.73 K/mm3 (0.84-5.20); LYMPHOCYTES PERCENT AUTO 7 % (21-46); MONOCYTES ABSOLUTE AUTO 0.24 K/mm3 (0.16-1.47); MONOCYTES PERCENT AUTO 2 % (4-13); Mean Corpuscular HGB 28.2 pg (26.0-34.0); Mean Corpuscular HGB Conc 30.4 g/dL (31.5-36.5); Mean Corpuscular Volume 93 fL (80-100); Mean Platelet Volume 9.7 fL (9.1-12.4); NEUTROPHILS ABSOLUTE AUTO 8.83 K/mm3 (1.96-9.15); NEUTROPHILS PERCENT AUTO 90 % (41-73); Platelet Count 220 K/mm3 (150-400); RDW Coefficient Variation 13.2 % (11.7-14.2); RDW Standard Deviation 44.5 fL (35.1-46.3); Red Blood Cell Count 3.86 M/mm3 (3.80-5.20); White Blood Cell Count 9.86 K/mm3 (4.00-11.30)
[2023-10-13 04:26] LABS: Albumin, Blood 3.1 g/dL (3.4-5.0); Albumin/Globulin Ratio 0.8 (0.8-1.8); Bilirubin, Total 0.5 mg/dL (0.1-1.0); Bun/Creatinine Ratio 51.2 (12.0-20.0); Calcium, Blood 9.6 mg/dL (8.5-10.1); Creatinine, Blood 0.39 mg/dL (0.40-1.00); Globulin, Blood 3.7 g/dL (2.2-4.0); Total Protein, Blood 6.8 g/dL (6.4-8.2)
--- NOTE | 2023-10-13 05:22 | NUR ---
SHIFT SUMMARY A/Ox3-4 AND COOPERATIVE WITH CARE. CAN BE FORGETFUL AT TIMES, BUT IS ABLE TO MAKE HER NEEDS KNOWN. NO ACUTE EVENTS SINCE TRANSFER FROM MEDICAL FLOOR. CARDIAC, REMAINS IN SR 70-80'S WITH INTERMITTENT RUNS OF TRIGEM., NO REPORTS OF CP OR PRESSURE. SBP HAS BEEN ELEVATED BUT STABLE RANGING 130-150'S. RESPIRATORY, WORE BiPAP 16/8 55% FiO2 T/O MOST OF THE NIGHT SINCE HER ARRIVAL TO PCU. BREAK GIVEN WITH PT MAINTAINING SPO >90% ON 6-8L HiFLOW NC. C/O FEELING CONGESTIONS IN HER CHEST AND NOT BEING ABLE TO EFFECTIVELY COUGH UP SECREATIONS. GI/, ABLE TO AMBULATE TO BSC WITH MINIMAL STAFF ASSISTANCE. Q2HR REPOSITIONING USED T/O THE NIGHT. NO NEW ORDERS AT THIS TIME, WILL REPORT TO ONCOMING RN. CHARLEEN HINDS OF THIS NOTE.
[2023-10-13 08:13] VITALS: BP 125/60
[2023-10-13] MEDS ORDERED: Loratadine 10 MG Tab PO SCH (09:00)
[2023-10-13] MEDS ORDERED: Citalopram Hydrobromide 20 MG Tab PO SCH (09:00)
[2023-10-13] MEDS ORDERED: Metoprolol Succinate 25 MG TABCR PO SCH (09:00)
[2023-10-13 16:13] VITALS: BP 155/65
--- NOTE | 2023-10-13 17:55 | NUR ---
Shift Summary Pt alert, oriented x4; calm and cooperative with care, occasionally anxious. Pt assists with repositioning. Up to BSC with 1 person assist. Pt denies pain, chest pain/pressure, nausea, dizziness and numb/tingling. When patient coughs desaturates to 70's; several minutes recover on 5-7l 02 via nc while off bipap. Coughing noted with water and food and then desaturation; notified new order for ST eval. This eveing patient stated on CPT, only tolerated approx 5 minutes per RT. Tele sinus 70-80's, bp stable. Abd soft, nontender, +bt. Other vss. No other acute changes noted. Will continue to monitor.
[2023-10-13 20:25] VITALS: BP 135/83
[2023-10-13] MEDS ORDERED: GuaiFENesin 600 MG TabCR PO SCH (21:00)
[2023-10-13 23:48] VITALS: BP 145/72
[2023-10-14 04:05] VITALS: BP 125/50
[2023-10-14 05:14] LABS: BASOPHILS PERCENT AUTO 0 % (0-2); EOSINOPHILS PERCENT AUTO 0 % (0-6); Hematocrit 35.1 % (33.0-51.0); Hemoglobin 10.5 g/dL (11.5-16.0); IMMATURE GRAN ABSOLUTE AUTO 0.07 K/mm3 (0.00-0.10); IMMATURE GRAN PERCENT AUTO 1 % (0-1); LYMPHOCYTES ABSOLUTE AUTO 0.81 K/mm3 (0.84-5.20); LYMPHOCYTES PERCENT AUTO 10 % (21-46); MONOCYTES ABSOLUTE AUTO 0.18 K/mm3 (0.16-1.47); MONOCYTES PERCENT AUTO 2 % (4-13); Mean Corpuscular HGB 28.2 pg (26.0-34.0); Mean Corpuscular HGB Conc 29.9 g/dL (31.5-36.5); Mean Corpuscular Volume 94 fL (80-100); Mean Platelet Volume 10.1 fL (9.1-12.4); NEUTROPHILS ABSOLUTE AUTO 7.45 K/mm3 (1.96-9.15); NEUTROPHILS PERCENT AUTO 88 % (41-73); Platelet Count 222 K/mm3 (150-400); RDW Coefficient Variation 13.1 % (11.7-14.2); RDW Standard Deviation 44.8 fL (35.1-46.3); Red Blood Cell Count 3.72 M/mm3 (3.80-5.20); White Blood Cell Count 8.51 K/mm3 (4.00-11.30)
[2023-10-14 05:52] LABS: Albumin, Blood 3.2 g/dL (3.4-5.0); Albumin/Globulin Ratio 0.9 (0.8-1.8); Bilirubin, Total 0.5 mg/dL (0.1-1.0); Bun/Creatinine Ratio 55.2 (12.0-20.0); Calcium, Blood 9.8 mg/dL (8.5-10.1); Creatinine, Blood 0.42 mg/dL (0.40-1.00); Globulin, Blood 3.4 g/dL (2.2-4.0); Potassium, Blood 4.3 mmol/L (3.5-5.5); Total Protein, Blood 6.6 g/dL (6.4-8.2)
--- NOTE | 2023-10-14 06:03 | NUR ---
SHIFT SUMMARY PT A&Ox4, CALLS AND COMMUNICATES NEEDS APPROPRIATELY. BP STABLE, SINUS 70's, DENIES CP/PRESSURE. SpO2> 92% BIPAP 14/6 55% FiO2, DENIES SOB. SBA TO BSC, CONTINENT OF URINE, NO BM THIS SHIFT. PT WOTH C/O PAIN IN R WRIST, MANAGED PER EMAR; SPLINT IN PLACE. NO OTHER EVENTS, WILL REPORT TO ONCOMING RN.
[2023-10-14 07:02] VITALS: BP 139/67
--- NOTE | 2023-10-14 10:00 | NUR ---
AM NOTE this rn assumed care at 0700. vital signs stable. spo2 >90% on 55% o2. patient at the start of shift wanting to use bedside comode. switched to nasal cannula 6l and spo2 in low 90s. patient begun to sit up and spo2 dropped into 70s. nasal cannula turned to 15l and then switched to nonrebreather. respiratory in room at this time. patient lowest spo2 was 68. patient took approx 5 mins to recover. patient positioned back in bed and placed back on bipap. spo2 >90%. this rn updated md reveles and team of incident and md reveles in to discuss plan with patient and went over quality vs quanity and [facility] severity of lung disease. patient verbalized understanding. son, sky, in room and this rn updated and spoke about comfort care and palliative care consult. this rn answered curts questions and patients questions. palliative care informed and will be by shortly. patient neuro is intact. alert and oriented. denies chest pain/pressure or pain. reports shortness of breath. see shift assessment for further detials.
[2023-10-14] MEDS ORDERED: Atropine Sulfate 1% Opth Soln 2ML BTL SL PRN (11:00)
[2023-10-14] MEDS ORDERED: LORazepam 1 MG Tab PO PRN (11:00)
[2023-10-14] MEDS ORDERED: Morphine Sulfate 20 MG/1ML 1 ML Oral Syringe SL PRN (11:00)
[2023-10-14] MEDS ORDERED: LORazepam 2 MG/ML 1ML Injection IV PRN (11:00)
[2023-10-14] MEDS ORDERED: Morphine Sulfate 10 MG/ML 1MLSYR IV PRN (11:00)
[2023-10-14] MEDS ORDERED: Scopolamine Hydrobromide Patch TOP PRN (11:00)
[2023-10-14] MEDS ORDERED: Promethazine HCl 25 MG Tab PO PRN (11:00)
--- NOTE | 2023-10-14 11:12 | NUR ---
Pt and son have discussed pt's health status over the past few days. The patient has decided to change her status to comfort care. She would like to make arrangements to go home with hospice, but she understands this may be unrealistic. Son is at bedside, they are waiting for other family members to arrive before removing pt from the bipap. Bedside RN aware, and comfort care orders placed. Appliance Installer notified. Will remain available as needed to patient and family.
--- NOTE | 2023-10-14 11:56 | NUR ---
UPDATE patient switched to comfort care
--- NOTE | 2023-10-14 11:58 | NUR ---
Spiritual Care Visit. Pt. is awake and on her bipap. Family members are present and welcome my visit. Speak to the Pts. son Getachew and establish a point of contact. Pt. verbalizes that she is aware that she is going to heaven soon. Many family aremaking their way in and out of the room. Faciltate a short life review and consider matters of ethan, belief and hope. Family verbalizes that the Pt. does not belong to a local anabaptist, but is a God-fearer. Prayed with Pt. Pt. displayed evidence of agreement and being at peace with her decision to proceed with comfort care. Will remain available to the Pt., nurse, and family.
--- NOTE | 2023-10-14 15:18 | NUR ---
bipap removal this rn removed bipap around 1455. patient was premedicated before removal. patient on 6l nc and ate some ice cream and yogurt. palliative care and spiritual care at bedside at the time of removal. family at bed side. md reveles rounding on patient
[2023-10-14] MEDS ORDERED: Morphine Sulfate 20 MG/1ML 1 ML Oral Syringe SL SCH (15:35)
[2023-10-14] MEDS ORDERED: HYDROmorphone HCl/Pf 1MG SYR IV PRN (15:40)
[2023-10-14] MEDS ORDERED: HYDROmorphone HCl/Pf 1MG SYR ONE (15:44)
--- NOTE | 2023-10-14 15:49 | NUR ---
Comfort Care: Pt required an extra 20mg of Roxanol due to increased SOB and anxiety once removed from bipap. Family gathered aroud patient. Will assist as needed. Attempting to call hospitalist to update her; no answer yet.
[2023-10-14] MEDS ORDERED: Promethazine HCl 25 MG Supp PR PRN (16:00)
--- NOTE | 2023-10-14 16:29 | NUR ---
"Spiritual Care | Comfort Care/EOL Pt. is awake in bed and family are gathered at bedside. Prayers are given and scripture is read prior to comfort care measures. Family is supportive but guarded about their words and grief. Once the Bi-Pap is removed and comfort care measures commenced. Pt. ate some ice cream and yogurt. Once more Prayers are given and scripture is read. Just prior to TOD, family requested more prayer. TOD - 1608. Assisted family and nurse Avila in collecting the Pts. belongings. Family had previously chose [facility] in [place] for their home services."
--- NOTE | 2023-10-14 16:56 | NUR ---
shift summary/time of patient had increase in air hunger and work of breathing. this rn notifed aly from palliative care, whom got ahold of md reveles and placed additional orders for medications. this rn medicated the patient per orders. family at bedside and spiritual care at bedside. this rn and spiritual care remained at bedside until time of at 1608. two rn confirmed with kathi agosto. this rn provided support to family and to let us know if they needed anything. family left and this rn and sabas from spiritual care gathered patient belongings and gave them to her son sky.
== END 2023-10-14 18:50 | DRG 189 ==
LOC: ER → MEDS 01:53 → PCU 22:24
PROVIDERS: Emergency Medicine; Nurse Practitioner Acute Care; ADMIT Internal Medicine
PROC: 5A09457 Assistance with Respiratory Ventilation, 24-96 Consecutive Hours, Continuous Positive Airway Pressure (ICD-10-PCS; principal; 2023-10-12)
DX: J96.21 Acute and chronic respiratory failure with hypoxia (principal); J44.1 Chronic obstructive pulmonary disease with (acute) exacerbation; Z68.41 Body mass index [BMI] 40.0-44.9, adult; J96.22 Acute and chronic respiratory failure with hypercapnia; F03.90 Unspecified dementia, unspecified severity, without behavioral disturbance, psychotic disturbance, mood disturbance, and anxiety; Z66 Do not resuscitate; M79.7 Fibromyalgia; Z51.5 Encounter for palliative care; E78.5 Hyperlipidemia, unspecified; E66.9 Obesity, unspecified; I10 Essential (primary) hypertension; G47.33 Obstructive sleep apnea (adult) (pediatric); E11.9 Type 2 diabetes mellitus without complications; G89.4 Chronic pain syndrome; Z91.041 Radiographic dye allergy status; Z88.5 Allergy status to narcotic agent; Z88.8 Allergy status to other drugs, medicaments and biological substances; Z79.51 Long term (current) use of inhaled steroids; Z79.891 Long term (current) use of opiate analgesic; Z79.899 Other long term (current) drug therapy; Z98.84 Bariatric surgery status; Z90.49 Acquired absence of other specified parts of digestive tract; Z98.890 Other specified postprocedural states; Z87.81 Personal history of (healed) traumatic fracture; Z87.891 Personal history of nicotine dependence; Z91.199 Patient's noncompliance with other medical treatment and regimen due to unspecified reason; Z99.81 Dependence on supplemental oxygen
CPT/HCPCS: 0241U; 36415; 71045; 71250; 80053; 82803; 82947; 83880; 84145; 85025; 85379; 85610; 87070; 87077; 87186; 87205; 94640; 94660; 94664; 94667; 94762; 97110; 97162; 97530; 99285-25; A9270; J0456; J1170; J1650; J2060; J2270; J2405; J2930; J7050